=== PATIENT | female | born 1960 | race Caucasian/White ===

== ENCOUNTER 2018-06-29 15:48 | Observation (INO) | payer SELFPAY ==
[~2018-06-29 15:48] MED LIST: ISOVUE-370 76%-LOCM 1 ML ONE
--- NOTE | 2018-06-29 16:01 | CT ---
BRAIN CT WITHOUT IV CONTRAST: 06/29/18 HISTORY: Stroke alert, left sided numbness and weakness approximately 1.5 hours ago. FINDINGS: No focal mass or midline shift. No intra or extra-axial hemorrhage. Sinuses and mastoids appear clear . IMPRESSION: No significant acute intracranial process. No mass or bleed. Findings discussed with Dr. Wilcox at 3:55 p.m. Code CR POS: [facility]
[2018-06-29 16:15] LABS: #Basophils 0.1 thou/uL (0.0-0.2); #Eosinphils 0.2 thou/uL (0.0-0.7); #Lymphocytes 2.3 thou/uL (1.20-3.40); #Monocytes 0.6 thou/uL (0.11-0.59); #Neutrophils 3.7 thou/uL (1.40-6.50); %Basophils 1.2 % (0.0-1.0); %Eosinophils 3.3 % (0.0-10.0); %Lymphocytes 33.1 % (21.0-51.0); %Monocytes 8.1 % (0.0-10.0); %Neutrophils 54.3 % (42.0-75.0); Hemoglobin 14.3 g/dL (12.0-16.0); Mean Corpuscular HGB CONC 33.8 g/dL (32.0-36.0); Mean Corpuscular Hemoglobin 33.2 pg (27.0-31.0); Mean Corpuscular Volume 98.3 fL (78.0-98.0); Mean Platelet Volume 7.9 fL (7.4-10.4); Platelet Count 259 thou/uL (130-400); RBC Distribution Width 11.5 % (11.5-14.5); Red Blood Cell (RBC) Count 4.29 mill/uL (4.20-5.40); White Blood Cell (WBC) Count 6.9 thou/uL (4.8-10.8)
[2018-06-29 16:21] LABS: PTT 26.5 SEC (22.9-36.1); Prothrombin Time 12.4 SEC (12.0-14.7)
[2018-06-29 16:22] LABS: INR-International Normal Ratio 0.9
--- NOTE | 2018-06-29 16:26 | CT ---
FCT angiogram head CT angiogram neck: 06/29/2018 COMPARISON: None HISTORY: Left-sided numbness, weakness of the face TECHNIQUE: Axial CT imaging at 1.25 mm intervals from the vertex through lung apices with IV contrast using a CT angiogram protocol. Coronal and sagittal 3-D reformatted imaging obtained. FINDINGS: The retroantral fat and parapharyngeal fat appears clear bilaterally. The parotid glands an d the submandibular glands are unremarkable laterally. The region of the tonsillar pillars, epiglotti s and preepiglottic fat, hyoid bone, thyroid cartilage, cricoid cartilage, and thyroid gland appear u nremarkable. The visualized lung apices demonstrate mild pulmonary parenchymal cystic change in the anterior aspec t of the left upper lobe on axial image 24. 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 No lymphadenopathy is noted within the neck. The imaged paranasal sinuses and mastoid air cells demonstrate no acute findings. On the basis of NASCET criteria, there is no hemodynamically significant stenosis involving the origi n of the subclavian or common carotid artery on either side. Proximal aspect of bilateral common carotid arteries demonstrates significant tortuosity. There is mild partially calcified plaque at the origin of the left internal carotid artery. On the ba sis of NASCET criteria, no hemodynamically significant stenosis is seen involving the internal caroti d artery on either side. Bilateral vertebral arteries are patent. Left vertebral artery is dominant. No hemodynamically signif icant stenosis or occlusion is seen involving the vertebral artery on either side. The basilar artery is patent. The posterior cerebral artery appears patent bilaterally. The P1 segmen t is hypoplastic on the right with a prominent right posterior communicating artery noted. The M1 segment is patent bilaterally. The A1 segment is patent bilaterally. Distal CARLY and MCA branch es appear grossly unremarkable. No saccular aneurysm, high-grade stenosis, or central arterial occlus ion noted. Review of the osseous structures demonstrates no acute osseous abnormality. IMPRESSION: 1. No hemodynamically significant stenosis involving the arterial structures of the neck on the basis of NASCET criteria. 2. No intracranial arterial occlusion. Results called to Dr. Wilcox at 4:19 PM 06/29/2018 CODE CR
[2018-06-29 16:28] LABS: ALT (SGPT) 36 U/L (8-55); AST (SGOT) 27 U/L (5-34); Albumin 4.4 g/dL (3.5-5.0); Alkaline Phosphatase 129 U/L (40-150); Anion Gap 9 mmol/L (10-20); BUN (Urea Nitrogen) 15 mg/dL (9.8-20.1); Bilirubin, Total 0.3 mg/dL (0.2-1.2); Calc. Creatinine Clearance 0 mL/min (70-130); Calcium 9.6 mg/dL (7.8-10.44); Carbon Dioxide 28 mmol/L (22-29); Chloride 107 mmol/L (98-107); Estimated GFR-MDRD 87; Globulin 3.1 g/dL (2.4-3.5); Glucose 102 mg/dL (70-105); Potassium 3.9 mmol/L (3.5-5.1); Protein, Total 7.5 g/dL (6.0-8.3); Sodium 140 mmol/L (136-145)
--- NOTE | 2018-06-29 16:31 | RAD ---
FPortable upright frontal chest radiograph: 06/29/2018 COMPARISON: None HISTORY: Strokelike symptoms FINDINGS: Lungs are clear. Heart and mediastinal contours are unremarkable. IMPRESSION: No acute findings.
[2018-06-29] MEDS ORDERED: Ondansetron PF 4 MG/2 ML Vial ONE (16:33)
[2018-06-29] MEDS ORDERED: Acetaminophen 500 MG TAB ONE (16:46)
[2018-06-29] MEDS ORDERED: ALPRAZolam 0.5 MG TAB ONE (17:14)
--- NOTE | 2018-06-29 18:48 | PDOC.FPRHP ---
- History of Present Illness Chief Complaint: face numbness History of Present Illness: 58yo F with pmh of CVA in 01/2018 presents with complaint of 1 day hx of L sided facial numbness and paresthesia with radiation to L shoulder. Pt endorses sudden onset of symptom and concurrent onset of MORENO and mild transient SOB which has since resolved. MORENO persists. Pt denies aura or visual disturbance. Denies transforming factors or other neurological deficit. Pt reports that this was her sole symptom of previous stroke. ED Course: ASA - Allergies/Adverse Reactions Allergies Allergy/AdvReac Type Severity Reaction Status Date / Time codeine Allergy Verified 06/29/18 20:25 levofloxacin [From Levaquin] Allergy Verified 06/29/18 20:25 Penicillins Allergy Verified 06/29/18 20:25 - Home Medications Medication Instructions Recorded Confirmed Type ALPRAZolam [Xanax] 0.5 mg PO DAILY PRN 06/29/18 06/29/18 History Amlodipine [Norvasc] 5 mg PO DAILY 06/29/18 06/29/18 History Aspirin 325 mg PO DAILY 06/29/18 06/29/18 History Carvedilol 1 tab PO BID 06/29/18 06/29/18 History Lisinopril [Prinivil] 10 mg PO DAILY 06/29/18 06/29/18 History Zolpidem Tartrate [Ambien] 5 mg PO HS 06/29/18 06/29/18 History - History PMHx: CVA, HTN, Anxiety PSHx: cholecystecotmy, hysterectomy, cath FHx: pt is adopted Social: denies tobacco/etoh, endorses occasional marijuana use - Review of Systems General: denies: fever/chills, fatigue Eyes: denies: eye pain, vision changes ENT: denies: nasal congestion, rhinorrhea Respiratory: denies: cough, congestion Cardiovascular: denies: chest pain, palpitation Gastrointestinal: denies: nausea, vomiting Genitourinary: denies: incontinence, dysuria Skin: denies: rashes, lesions Musculoskeletal: denies: pain, tenderness Neurological: denies: syncope, seizure Psychological: denies: anxiety, depression - Vital signs BP: [141/74] HR: [69] RR: [20] Tmax: [98] Pox: [100]% on [ra] Wt: [75kg] - Physical Exam Constitutional: NAD, awake, alert and oriented HEENT: normocephalic and atraumatic, EOMI, grossly normal vision, grossly normal hearing Neck: supple, trachea midline Chest: no-tender to palpation Heart: RRR, normal S1/S2 Lungs: CTAB, no respiratory distress Abdomen: soft, non-tender Musculoskeletal: normal structure, normal tone -Neurological: Gross full body and head L sided decreased sensation with paresthesia, otherwise normal manager photo, normal reflexes, normal strength and normal sensation Skin: no rash/lesions, good turgor Heme/Lymphatic: no unusual bruising or bleeding, no purpura Psychiatric: normal mood and affect, good judgment and insight FMR H&P: Results - Labs Result Diagrams: 06/29/18 15:59 06/29/18 15:59 Lab results: WBC 6.9 thou/uL (4.8-10.8) 06/29/18 15:59 Hgb 14.3 g/dL (12.0-16.0) 06/29/18 15:59 Hct 42.2 % (36.0-47.0) 06/29/18 15:59 MCV 98.3 fL (78.0-98.0) H 06/29/18 15:59 Plt Count 259 thou/uL (130-400) 06/29/18 15:59 Neutrophils % 54.3 % (42.0-75.0) 06/29/18 15:59 Sodium 140 mmol/L (136-145) 06/29/18 15:59 Potassium 3.9 mmol/L (3.5-5.1) 06/29/18 15:59 Chloride 107 mmol/L (98-107) 06/29/18 15:59 Carbon Dioxide 28 mmol/L (22-29) 06/29/18 15:59 BUN 15 mg/dL (9.8-20.1) 06/29/18 15:59 Creatinine 0.70 mg/dL (0.6-1.1) 06/29/18 15:59 Glucose 102 mg/dL (70-105) 06/29/18 15:59 Calcium 9.6 mg/dL (7.8-10.44) 06/29/18 15:59 Total Bilirubin 0.3 mg/dL (0.2-1.2) 06/29/18 15:59 AST 27 U/L (5-34) 06/29/18 15:59 ALT 36 U/L (8-55) 06/29/18 15:59 Alkaline Phosphatase 129 U/L (40-150) 06/29/18 15:59 Creatine Kinase 33 U/L (29-168) 06/29/18 15:59 Serum Total Protein 7.5 g/dL (6.0-8.3) 06/29/18 15:59 Albumin 4.4 g/dL (3.5-5.0) 06/29/18 15:59 FMR H&P: A/P - Problem List (1) Migraine Current Visit: Yes Status: Acute Code(s): G43.909 - MIGRAINE, UNSP, NOT INTRACTABLE, WITHOUT STATUS MIGRAINOSUS (2) HTN (hypertension) Current Visit: Yes Status: Acute Code(s): I10 - ESSENTIAL (PRIMARY) HYPERTENSION (3) Anxiety Current Visit: Yes Status: Acute Code(s): F41.9 - ANXIETY DISORDER, UNSPECIFIED - Plan TIA vs. Migraine vs. CVA A- CTA head and neck and CT brain wnl, pt symptoms are atypical for stroke but are the same as the sympotms she had with previous stroke. Likely complex migraine vs. TIA but stroke r/o is reasonable P- MRI in AM - FLP - ASA - request records from previous stroke hospitalization HTN - hold home meds for now (permissive htn) Anxiety -home meds CODE: DNI FMR H&P: Upper Level - Pertinent history Elysia Pulido is a 58 year old female with a past history of HTN and TIA (01/21) who presents to the ED with several hour history of constant left facial numbness. - Pertinent findings Vitals: BP 155/104 P: 89 RR: 18 O2: 98% on RA Exam: General: Alert and oriented x 3 Heart: RRR, no MRG Lungs: CTAB Neuro: CN II-XII intact grossly. No focal motor deficits. Imaging: no acute intracranial process; no hemorrhage or mass CTA head/neck: no hemodynamically significantly - Plan Date/Time: 06/29/18 1908 Dayana Sutton, have evaluated this patient and agree with findings/plan as outlined by quality intern resident. Pertinent changes/additions are listed here. CVA/TIA rule out - will admit to stroke unit for observation. - stroke team consulted. NPO pending bedside swallow. - pt received full dose ASA in ED. Continue ASA 81 mg qd. - risk stratification with FLP, A1C, ECHO. MRI in AM. - will request records regarding pt's recent hospitalization. Regarding chronic medical problems. pt's home medications will be restarted. Addendum - Attending - Attending Attestation Date/Time: 06/29/18 9783 I personally evaluated the patient and discussed the management with Dr. Godinez /Kedar. I agree with the History, Examination, Assessment and Plan documented above with any addition or exceptions noted below. Patient with history of CVA with no residual deficits here with 1 day history of L face numbness/paresthesias and possible shoulder paresthesias and headache. Denies other motor or sensory loss, vision changes, speech difficulties. Labwork overall nonrevealing, and CT/CTA negative for acute pathology. She is admitted for CVA versus TIA versus complicated Migraine. Will work to get her headache under control, obtain MRI in AM both for CVA r/o purposes but also due to new onset and character of headache in her age group. Monitor symptoms. Further mgmt per clinical course.
[2018-06-29 19:32] LABS: Troponin I Less than 0.010 ng/mL (< 0.028)
[2018-06-29] MEDS ORDERED: Calcium Carbonate 500 MG ChewTAB PO PRN (20:18)
[2018-06-29] MEDS ORDERED: Acetaminophen 325 MG TAB PO PRN (20:18)
[2018-06-29] MEDS ORDERED: Ondansetron ODT 4 MG TAB PO PRN (20:18)
[2018-06-29] MEDS ORDERED: Ibuprofen 600 MG TAB PO PRN (20:18)
[2018-06-29] MEDS ORDERED: Metoclopramide HCl 10 MG/2 ML VIAL IVP SCH (20:18)
[2018-06-29] MEDS ORDERED: Ibuprofen 600 MG TAB PO SCH (20:18)
[2018-06-29] MEDS ORDERED: diphenhydrAMINE 25 MG CAP PO SCH (20:18)
[2018-06-29 20:34] VITALS: BMI 27.5
[2018-06-29 20:34] LABS: Hemoglobin A1c 4.5 % (4.0-6.0)
[2018-06-29] MEDS ORDERED: Sodium Chloride 0.9% 1,000 ML IV SCH (22:15)
[2018-06-29] MEDS ORDERED: Prochlorperazine 10 MG/2 ML VIAL IVP SCH (22:30)
[2018-06-29 22:34] LABS: Troponin I Less than 0.010 ng/mL (< 0.028)
[2018-06-29] MEDS: Zolpidem Tartrate 5 MG TAB PO PRN (23:24)
--- NOTE | 2018-06-30 05:55 | PDOC.FM ---
- Subjective Subjective: Pt states that her left face is still numb like she has been to the dentist. She does state that her left arm and shoulder has returned to normal. She continues to complain of a headache on the left side of her head above the mastoid bone. She denies aura, photosensitivity, or vomiting. She does report some nausea this morning. - Objective Vital Signs & Weight: Vital Signs (12 hours) Temp Pulse Resp BP Pulse Ox 06/30/18 04:00 97.4 F L 62 16 132/79 99 06/30/18 00:00 97.8 F 74 16 127/86 96 06/29/18 19:13 98 F 69 20 141/74 H 100 Weight Weight 77.292 kg I&O: 06/28/18 06/29/18 06/30/18 06:59 06:59 06:59 Intake Total 1002 Balance 1002 Result Diagrams: 06/29/18 15:59 06/29/18 15:59 Phys Exam - Physical Examination Constitutional: NAD HEENT: moist MMs Neck: supple, full ROM Respiratory: no wheezing, no rales, clear to auscultation bilateral Cardiovascular: RRR, no significant murmur Gastrointestinal: soft, non-tender, no distention, positive bowel sounds Musculoskeletal: pulses present CN II-XII grossly intact with the acception of all 3 branches of V, sensory Psychiatric: A&O x 3 Skin: cap refill <2 seconds Dx/Plan (1) Anxiety Code(s): F41.9 - ANXIETY DISORDER, UNSPECIFIED Status: Acute (2) HTN (hypertension) Code(s): I10 - ESSENTIAL (PRIMARY) HYPERTENSION Status: Acute (3) Migraine Code(s): G43.909 - MIGRAINE, UNSP, NOT INTRACTABLE, WITHOUT STATUS MIGRAINOSUS Status: Acute - Plan Plan: This is a 58 yo female with a pmh of anxiety, htn TIA vs migraine vs CVA -Normal CTA of head and neck and CT Brain -Pending FLP, Brain MRI, records from previous stroke hospitalization -NPO pending swallow study Headache -Pt has had NS bolus and compazine, starting magnesium and solu-medrol HTN -Allow for permissive HTN, although pt has been normotensive since admission Anxiety -Continue home meds Addendum - Attending - Attending Attestation Date/Time: 06/30/182012 I personally evaluated the patient and discussed the management with Dr. Gifford I agree with the History, Examination, Assessment and Plan documented above with any addition or exceptions noted below. Patient with neuralgia consider occipital /trigeminal neuralgia and consider tegretol /lidocaine injection if she remains refractory to treatment.
[2018-06-30 06:14] LABS: Cardiac Risk 3.8 (Less than 4.5)
[2018-06-30] MEDS: Aspirin 325 MG TAB PO SCH (09:08)
[2018-06-30] MEDS: Enoxaparin Sodium 40 MG/0.4 ML SYRINGE SC SCH (09:09)
[2018-06-30] MEDS ORDERED: Magnesium 2 GM/50 ML 2 GM in Premix Bag 1 BAG IVPB SCH (09:15)
[2018-06-30] MEDS ORDERED: methylPREDNISolone Sod Succ/PF 125 MG/2 ML VIAL IVP SCH (09:15)
[2018-06-30] MEDS ORDERED: Bacteriostatic Water 30 ML VIAL FS PRN ×2 (09:43→10:00)
[2018-06-30] MEDS: ALPRAZolam 0.5 MG TAB PO PRN (09:59)
--- NOTE | 2018-06-30 11:23 | MRI ---
[facility] brain noncontrast: 06/30/2018 HISTORY: 58-year-old female with left facial numbness and weakness. CVA versus migraine. COMPARISON: No prior brain MRIs. FINDINGS: No restricted diffusion to indicate any acute infarction. No evidence of moderate sized or large carisa ical infarction of any age. A few tiny scattered T2 hyperintensities in frontal cyr radiata and ce ntrum semiovale, nonspecific. These could represent minimal chronic ischemic white matter changes or migraine lesions. Ventricles are normal in size and configuration. No mass effect, midline shift, or extra-axial fluid collection. No evidence of major recent or remote intra-axial hemorrhage. Most of t he images are degraded by patient motion. IMPRESSION: Negative
[2018-06-30] MEDS ORDERED: carBAMazepine 200 MG TAB PO SCH (12:15)
[2018-06-30] MEDS ORDERED: Metoclopramide HCl 10 MG/2 ML VIAL IVP SCH (14:30)
[2018-06-30] MEDS ORDERED: Sodium Chloride 0.9% 1,000 ML IV SCH (14:30)
[2018-06-30] MEDS ORDERED: Prochlorperazine Edisylate 10 MG in Sodium Chloride 0.9% 50 ML IVPB SCH (14:30)
[2018-06-30] MEDS ORDERED: Morphine 4 MG/ML VIAL SLOW IVP SCH (18:30)
[2018-06-30] MEDS ORDERED: Rosuvastatin 10 MG TAB PO SCH (21:00)
[2018-06-30] MEDS: Zolpidem Tartrate 5 MG TAB PO PRN (22:23)
[2018-07-01] MEDS: ALPRAZolam 0.5 MG TAB PO PRN (04:21)
--- NOTE | 2018-07-01 05:26 | PDOC.FM ---
- Subjective Subjective: Pt states that her headache is mildly improved. She states the morphine helped overnight. She reports that she has been having lots of stress and believes that also may be contributing to her headache. - Objective MAR Reviewed: Yes Vital Signs & Weight: Vital Signs (12 hours) Temp Pulse Resp BP Pulse Ox 07/01/18 04:16 97.8 F 84 20 137/75 96 06/30/18 20:17 97.7 F 89 20 134/79 93 L Weight Weight 77.292 kg I&O: 06/29/18 06/30/18 07/01/18 06:59 06:59 06:59 Intake Total 2051 2406 Balance 2051 2406 Result Diagrams: 06/29/18 15:59 06/29/18 15:59 Phys Exam - Physical Examination Constitutional: NAD HEENT: moist MMs Tenderness to the occipital region on left Neck: full ROM Respiratory: no wheezing, clear to auscultation bilateral Cardiovascular: RRR, no significant murmur, no rub Gastrointestinal: soft, no distention, positive bowel sounds Musculoskeletal: no edema, pulses present Neurological: moves all 4 limbs Continues to have left sided numbness Psychiatric: A&O x 3 Deviation from normal: Mildly anxious Skin: cap refill <2 seconds Dx/Plan (1) Anxiety Code(s): F41.9 - ANXIETY DISORDER, UNSPECIFIED Status: Acute (2) HTN (hypertension) Code(s): I10 - ESSENTIAL (PRIMARY) HYPERTENSION Status: Acute (3) Migraine Code(s): G43.909 - MIGRAINE, UNSP, NOT INTRACTABLE, WITHOUT STATUS MIGRAINOSUS Status: Acute - Plan Plan: This is a 58 yo female with a pmh of anxiety, htn TIA vs migraine vs CVA -Normal CTA of head and neck and CT Brain -Brain MRI negative -Pt started on statin Headache, likely occipital neuralgia -Pt would likely benefit from a occipital nerve block outpt -We have started tegretol in hopes to relief some of her symptoms HTN -Allow for permissive HTN, although pt has been normotensive since admission Anxiety -Continue home meds Addendum - Attending - Attending Attestation Date/Time: 07/01/18 [id number] I personally evaluated the patient and discussed the management with I agree with the History, Examination, Assessment and Plan documented above with any addition or exceptions noted below. Patient refused tegretol yesterday Headache protocol follow with suboptimal response patient states relief only from Morphine and mentions by name that in past dilaudid has helped. Patient with several recent life circumstance stressors i.e. loss of spouse and loss of home. Recommend trial of injection sc triptan otherwise would benefit from further evaluation outpatient Neurologist and could re-offer trial tegretol to patient. Do not feel in patient best interest to offer opiods.
[2018-07-01] MEDS: Aspirin 325 MG TAB PO SCH (10:28)
[2018-07-01] MEDS: Enoxaparin Sodium 40 MG/0.4 ML SYRINGE SC SCH (10:28)
[2018-07-01] MEDS ORDERED: SUMAtriptan Succinate 6 MG/0.5 ML VIAL SC SCH (10:30)
[2018-07-01 11:33] VITALS: TEMP 97.6
[2018-07-01 12:34] VITALS: BP 142/90
--- NOTE | 2018-07-02 06:19 | DIS ---
DATE OF ADMISSION: 06/29/2018 DATE OF DISCHARGE: 07/01/2018 RESIDENT: James Gifford DO. ADMITTING ATTENDING: Ezequiel Elizondo MD. CONSULTS: None. PROCEDURES: 1. Brain MRI without contrast shows negative for any intracranial lesions. 2. Chest x-ray, portable shows no acute findings. 3. CT head angiogram with and without shows no hemodynamically significant stenosis involving the arterial structures in the neck. No intracranial arterial occlusions. 4. Brain CT without contrast shows no significant acute intracranial process. No mass or bleed. PRIMARY DIAGNOSIS: Likely occipital neuralgia versus trigeminal neuralgia. SECONDARY DIAGNOSES: Cerebrovascular accident, hypertension, anxiety, drug-seeking behavior. DISCHARGE MEDICATIONS: 1. Amlodipine 5 mg p.o. daily. 2. Carvedilol 6.25 mg p.o. b.i.d. 3. Xanax 0.5 mg p.o. daily p.r.n. anxiety. 4. Aspirin 325 mg p.o. daily. 5. Lisinopril 10 mg p.o. daily. 6. Rosuvastatin (Crestor) 10 mg p.o. at bedtime. 7. Ambien 5 mg p.o. at bedtime. DISCONTINUED MEDICATIONS: None. BRIEF HISTORY OF PRESENT ILLNESS/HOSPITAL COURSE: This is a 58-year-old female with past medical history of CVA in January 2018, who presents with a complaint of 1-day history of left-sided facial numbness and paresthesia that radiates to left shoulder. The patient was admitted to the hospital, worked up for stroke, which workup including MRI was negative. The patient continued to have numbness on the side of her face. Tenderness to palpation above the mastoid bone near the occipital region. The patient's NIH score remained stable at 1. In the afternoon, the day before discharge, the patient received one time dose of morphine, which she reports relieved her pain. The patient continued to make comments about Dilaudid helping the pain and the morphine being the only medication that works. Before this point, we tried multiple options including Reglan, Benadryl, IV fluid bolus, Solu-Medrol, magnesium, attempted carbamazepine to treat neuralgia. The patient refused carbamazepine and requested only morphine as that was the drug that helped. At the time of discharge, the patient was stable, continued to have some numbness in her face. DISCHARGE INSTRUCTIONS: 1. Location: Home. 2. Diet: Heart healthy. 3. Activity: As tolerated. 4. Follow up with PCP. The patient would also benefit from following up with Neurology if this continues to be an issue. Job ID: [id number]
== END 2018-07-01 15:55 | disposition home or self-care (01) ==
LOC: ERS 15:48 → 2SE 19:21
PROVIDERS: ADMIT Family Medicine; ATTEND Family Medicine
DX: R20.0 Anesthesia of skin (principal); I10 Essential (primary) hypertension; F41.9 Anxiety disorder, unspecified; G43.909 Migraine, unspecified, not intractable, without status migrainosus; Z76.5 Malingerer [conscious simulation]; Z86.73 Personal history of transient ischemic attack (TIA), and cerebral infarction without residual deficits; Z90.49 Acquired absence of other specified parts of digestive tract; Z90.710 Acquired absence of both cervix and uterus; Z88.5 Allergy status to narcotic agent; Z88.1 Allergy status to other antibiotic agents; Z88.0 Allergy status to penicillin; Z79.82 Long term (current) use of aspirin; Z79.899 Other long term (current) drug therapy
CPT/HCPCS: 36415; 36416; 70450; 70496; 70498; 70551; 71045; 80053; 80061; 82550; 83036; 84484; 85025; 93005; 93306; 96361; 96365; 96367; 96372; 96375; G0378; J0780; J1650; J2270; J2405; J2765; J2930; J3030; J3475; J7050; Q0162; Q0163; Q9966

== ENCOUNTER 2018-08-31 19:13 | Observation (INO) | payer SELFPAY ==
[2018-08-31 20:19] LABS: #Basophils 0.1 thou/uL (0.0-0.2); #Eosinphils 0.3 thou/uL (0.0-0.7); #Lymphocytes 2.7 thou/uL (1.20-3.40); #Monocytes 0.5 thou/uL (0.11-0.59); #Neutrophils 4.8 thou/uL (1.40-6.50); %Basophils 0.9 % (0.0-1.0); %Eosinophils 3.2 % (0.0-10.0); %Lymphocytes 32.7 % (21.0-51.0); %Monocytes 5.5 % (0.0-10.0); %Neutrophils 57.8 % (42.0-75.0); Hemoglobin 13.7 g/dL (12.0-16.0); Mean Corpuscular HGB CONC 33.8 g/dL (32.0-36.0); Mean Corpuscular Hemoglobin 33.4 pg (27.0-31.0); Mean Corpuscular Volume 98.8 fL (78.0-98.0); Mean Platelet Volume 7.9 fL (7.4-10.4); Platelet Count 254 thou/uL (130-400); RBC Distribution Width 11.9 % (11.5-14.5); Red Blood Cell (RBC) Count 4.09 mill/uL (4.20-5.40); White Blood Cell (WBC) Count 8.3 thou/uL (4.8-10.8)
[2018-08-31 20:41] LABS: ALT (SGPT) 40 U/L (8-55); AST (SGOT) 41 U/L (5-34); Albumin 4.5 g/dL (3.5-5.0); Alkaline Phosphatase 100 U/L (40-150); Anion Gap 14 mmol/L (10-20); BUN (Urea Nitrogen) 19 mg/dL (9.8-20.1); Bilirubin, Total 0.5 mg/dL (0.2-1.2); CK (CPK) 39 U/L (29-168); Calc. Creatinine Clearance 0 mL/min (70-130); Carbon Dioxide 23 mmol/L (22-29); Chloride 106 mmol/L (98-107); Estimated GFR-MDRD 82; Globulin 3.6 g/dL (2.4-3.5); Glucose 87 mg/dL (70-105); Lipase 35 U/L (8-78); Potassium 4.2 mmol/L (3.5-5.1); Protein, Total 8.1 g/dL (6.0-8.3); Sodium 139 mmol/L (136-145)
[2018-08-31] MEDS ORDERED: Fentanyl 100 MCG/2 ML VIAL ONE (20:44)
[2018-08-31] MEDS ORDERED: Lorazepam 2 MG/ML VIAL ONE (20:44)
--- NOTE | 2018-08-31 20:54 | RAD ---
PORTABLE CHEST: History: Chest pain FINDINGS: Lungs appear clear. Heart and mediastinum unremarkable. IMPRESSION: No acute process. POS: [facility]
--- NOTE | 2018-08-31 20:59 | CT ---
CT HEAD WITHOUT CONTRAST: Technique: Multiple axial tomograms were obtained through the head without IV enhancement. Indications: Syncope. FINDINGS: Ventricles have normal size and position. No mass or hemorrhage. No infarct. Sinuses are clear. IMPRESSION: No acute process. POS: [id number]
[2018-08-31] MEDS ORDERED: Ondansetron PF 4 MG/2 ML Vial ONE (21:14)
--- NOTE | 2018-08-31 21:19 | PDOC.FPRHP ---
- History of Present Illness Chief Complaint: Chest pain and syncope History of Present Illness: This is 58 yo female with a pmh of HTN, RBBB, TIA 01/21 who presents to the ED with a cc of chest pain and syncopal episode. She reports the chest pain started at 1400 the day of admission. She states the pain is a pressure without radiation below her sternum. She feels she can not get a good breath. Her syncopal episode occurred at 1500 for less than a minute. Witnessed LOC, no seizure activity. ED Course: zofran, fentanyl, ativan, NS 1L - Allergies/Adverse Reactions Allergies Allergy/AdvReac Type Severity Reaction Status Date / Time codeine Allergy Verified 06/29/18 20:25 ketorolac Allergy Verified 08/31/18 22:40 levofloxacin [From Levaquin] Allergy Verified 06/29/18 20:25 Penicillins Allergy Verified 06/29/18 20:25 - Home Medications Medication Instructions Recorded Confirmed Type ALPRAZolam [Xanax] 0.5 mg PO DAILY PRN 06/29/18 08/31/18 History Aspirin 325 mg PO DAILY 06/29/18 08/31/18 History Zolpidem Tartrate [Ambien] 10 mg PO HS 06/29/18 08/31/18 History Amlodipine [Norvasc] 5 mg PO DAILY #30 tab 07/01/18 08/31/18 Rx Carvedilol 1 tab PO BID #60 tablet 07/01/18 08/31/18 Rx Lisinopril [Prinivil] 10 mg PO DAILY #30 tablet 07/01/18 08/31/18 Rx Rosuvastatin [Crestor] 10 mg PO HS #30 tab 07/01/18 08/31/18 Rx - History PMHx: HTN, RBBB, TIA PSHx: Heart cath 03/23, cholecystecotmy, hysterectomy, pseudoaneurysm x2 FHx: Non contributory Social: Hx of smoking, denies alcohol or drugs - Review of Systems General: reports: fatigue. denies: fever/chills, weight/appetite/sleep changes Eyes: denies: eye pain, vision changes ENT: denies: nasal congestion, rhinorrhea Respiratory: reports: shortness of breath. denies: cough Cardiovascular: reports: chest pain. denies: palpitation, edema Gastrointestinal: denies: nausea, vomiting, diarrhea, GI bleeding Genitourinary: denies: incontinence Skin: denies: rashes, lesions Musculoskeletal: denies: pain, tenderness Neurological: reports: syncope. denies: numbness Psychological: reports: anxiety. denies: depression - Vital signs BP: 128/82 HR: 72 RR: 18 Tmax: 98.3 Pox: 99% on ra Wt: 74 kg - Physical Exam Constitutional: NAD, awake, alert and oriented, well developed HEENT: normocephalic and atraumatic, PERRLA, EOMI Neck: supple, FROM Chest: other (severe tenderness to palpation, reportably the pain she was feeling before) Heart: RRR, normal S1/S2, no murmurs/rubs/gallops Lungs: CTAB, no respiratory distress, no wheezing Abdomen: soft, non-tender Musculoskeletal: normal structure, normal tone Skin: good turgor, capillary refill <2 seconds Heme/Lymphatic: no unusual bruising or bleeding Psychiatric: normal mood and affect FMR H&P: Results - Labs Result Diagrams: 08/31/18 20:01 09/01/18 01:54 Lab results: WBC 8.3 thou/uL (4.8-10.8) 08/31/18 20:01 Hgb 13.7 g/dL (12.0-16.0) 08/31/18 20:01 Hct 40.4 % (36.0-47.0) 08/31/18 20:01 MCV 98.8 fL (78.0-98.0) H 08/31/18 20:01 Plt Count 254 thou/uL (130-400) 08/31/18 20:01 Neutrophils % 57.8 % (42.0-75.0) 08/31/18 20:01 Sodium 139 mmol/L (136-145) 08/31/18 20:01 Potassium 4.2 mmol/L (3.5-5.1) 08/31/18 20:01 Chloride 106 mmol/L (98-107) 08/31/18 20:01 Carbon Dioxide 23 mmol/L (22-29) 08/31/18 20:01 BUN 19 mg/dL (9.8-20.1) 08/31/18 20:01 Creatinine 0.73 mg/dL (0.6-1.1) 08/31/18 20:01 Glucose 87 mg/dL (70-105) 08/31/18 20:01 Calcium 10.0 mg/dL (7.8-10.44) 08/31/18 20:01 Total Bilirubin 0.5 mg/dL (0.2-1.2) 08/31/18 20:01 AST 41 U/L (5-34) H 08/31/18 20:01 ALT 40 U/L (8-55) 08/31/18 20:01 Alkaline Phosphatase 100 U/L (40-150) 08/31/18 20:01 Creatine Kinase 39 U/L (29-168) 08/31/18 20:01 B-Natriuretic Peptide Less than 10.0 pg/mL (0-100) 08/31/18 19:57 Serum Total Protein 8.1 g/dL (6.0-8.3) 08/31/18 20:01 Albumin 4.5 g/dL (3.5-5.0) 08/31/18 20:01 Lipase 35 U/L (8-78) 08/31/18 20:01 - EKG Interpretation EKG: RBBB, no st elevation or depression - Radiology Interpretation CT scan - head Status: report reviewed by me (negative for acute process) Chest x-ray Status: report reviewed by me (no acute processes) FMR H&P: A/P - Problem List (1) Chest pain Current Visit: Yes Status: Acute Code(s): R07.9 - CHEST PAIN, UNSPECIFIED (2) Acute costochondritis Current Visit: Yes Status: Acute Code(s): M94.0 - CHONDROCOSTAL JUNCTION SYNDROME [TIETZE] (3) Anxiety Current Visit: No Status: Acute Code(s): F41.9 - ANXIETY DISORDER, UNSPECIFIED (4) HTN (hypertension) Current Visit: No Status: Acute Code(s): I10 - ESSENTIAL (PRIMARY) HYPERTENSION - Plan This is 58 yo female with a pmh of HTN, RBBB, TIA 01/21 Chest pain, likely costochondritis vs arrhythmia -Admit to tele obs -Reproducible pain -Recent Echo was negative, CTA head and neck was recently negative as well (2018) -Stress test this morning 2/2 history Hypertensive urgency -BP 188/112 at home -Resolved in ER, will continue monitoring -Continue home meds RBBB -Pt may consider outpt holter monitor to follow for arrhythmias HTN -Continue home meds Code: Full Prophylaxis: SCDs Family: None at bedside fluids: SL Diet: NPO Disposition: Home in 1-2 days PCP: [facility] FMR H&P: Upper Level - Plan Date/Time: 08/31/18 8218 Zulma Sutton MD, have evaluated this patient and agree with findings/plan as outlined by help desk internship resident. Pertinent changes/additions are listed here. 58 y/o F w/ PMHx of CVA presents for eval of chest pain and syncopal episode while at work around 1600 earlier tonight. Reports feeling like her heartbeat was pulsing in her head and a swimming sensation and some chest pressure prior to LOC for approx. 1 min. Witnessed, no seizure like activity. Reports chest pressure continued and BP elevated and went to the ER for eval. Reports pain w/ deep inspiration. Vitals per help desk internship note Trop < 0.01 TSH 0.7534 CK 39 D-Dimer - < 0.27 EKG - Complete RBB CXR NAD CT Brain - NAD Exam Grossly normal. Chest pain reproducible w/ palpation. 58 y/o F w/: 1. Atypical Chest Pain - Trop and EKG WNL - ASA given in ER - Cont. to trend trops, start high intensity statin. Stress in the AM 2. Syncopal episode - Unclear etiology at this time DDx includes arrhythmia vs vasovagal. Likely vasovagal given prodromal sxs - Head CT WNL - CTA Head/Neck negative from 06/2018 admission. Unlikely to have developed hemodynamically significant stenosis in the past 6 months - ECHO from 06/2018 admission grossly normal as well. Will likely need holter as an outpatient Addendum - Attending - Attending Attestation Date/Time: 09/01/18 1104 I personally evaluated the patient and discussed the management with Dr. Gifford /Kylah. I agree with the History, Examination, Assessment and Plan documented above with any addition or exceptions noted below. Patient here for chest pain that is MSK in nature and concern for syncope. She had recent evaluation with Echo and CTA that does not need to be repeated. History consistent with orthostatis/vasovagal. She does not need stress testing as she had recent heart cath in [place] which records were reviewed this morning showing no CAD. Ruled out with enzymes. Stable for discharge.
[2018-08-31 22:38] VITALS: BMI 27.8
[2018-08-31] MEDS ORDERED: Ondansetron PF 4 MG/2 ML Vial IVP PRN (23:02)
[2018-08-31] MEDS ORDERED: Ondansetron ODT 4 MG TAB SL PRN (23:02)
[2018-08-31 23:08] LABS: Troponin I Less than 0.010 ng/mL (< 0.028)
[2018-08-31] MEDS ORDERED: Aspirin 325 MG TAB PO SCH (23:15)
[2018-08-31] MEDS: Sodium Chloride 0.9% 1,000 ML IV SCH (23:19)
[2018-09-01] MEDS: Lorazepam 2 MG/ML VIAL SLOW IVP PRN ×2 (00:09→08:18)
[2018-09-01 02:33] LABS: Troponin I 0.012 ng/mL (< 0.028)
[2018-09-01] MEDS ORDERED: Acetaminophen 500 MG TAB PO PRN (04:19)
[2018-09-01] MEDS ORDERED: Nitroglycerin 0.4 MG TAB (25 Tab Bottle) PO PRN (04:19)
[2018-09-01] MEDS ORDERED: Calcium Carbonate 500 MG ChewTAB PO PRN (04:19)
[2018-09-01 05:04] LABS: Anion Gap 13 mmol/L (10-20); BUN (Urea Nitrogen) 17 mg/dL (9.8-20.1); Calc. Creatinine Clearance 111 mL/min (70-130); Calcium 8.9 mg/dL (7.8-10.44); Carbon Dioxide 21 mmol/L (22-29); Chloride 109 mmol/L (98-107); Estimated GFR-MDRD 84; Glucose 124 mg/dL (70-105); Potassium 3.6 mmol/L (3.5-5.1); Sodium 139 mmol/L (136-145)
[2018-09-01 07:42] VITALS: TEMP 98
[2018-09-01] MEDS ORDERED: Aspirin 325 MG TAB PO SCH (08:00)
[2018-09-01] MEDS: Sodium Chloride 0.9% 1,000 ML IV SCH (08:19)
[2018-09-01] MEDS ORDERED: Lisinopril 10 MG TAB PO SCH (09:00)
[2018-09-01] MEDS ORDERED: Amlodipine 5 MG TAB PO SCH (09:00)
[2018-09-01 11:53] VITALS: BP 129/71
[2018-09-01] MEDS ORDERED: Zolpidem Tartrate 5 MG TAB PO SCH (21:00)
[2018-09-01] MEDS ORDERED: Rosuvastatin 10 MG TAB PO SCH (21:00)
--- NOTE | 2018-09-02 10:34 | DIS ---
DATE OF ADMISSION: 08/31/2018 DATE OF DISCHARGE: 09/01/2018 ADMITTING ATTENDING: Ezequiel Elizondo MD DISCHARGE ATTENDING: Ezequiel Elizondo MD CONSULTS: None. PROCEDURES: None. IMAGING: Chest x-ray significant for no acute findings. Brain CT significant for no acute intracranial findings. DISCHARGE MEDICATIONS: 1. Aspirin 325 mg p.o. daily. 2. Ambien 10 mg p.o. at bedtime. 3. Xanax 0.5 mg p.o. daily. 4. Crestor 10 mg p.o. at bedtime. 5. Amlodipine 5 mg p.o. daily. 6. Coreg 1 tablet p.o. b.i.d. 7. Lisinopril 10 mg p.o. daily. DISCHARGE DIAGNOSIS: Atypical chest pain. SECONDARY DIAGNOSES: 1. Hypertensive urgency. 2. Right bundle-branch block. 3. Hypertension. HISTORY OF PRESENT ILLNESS/HOSPITAL COURSE: Ms. Pulido is a 58-year-old female who presents to the emergency room with a chief complaint of chest pain and syncopal episode. She has presented to emergency rooms in the past with similar complaints and received various pain medications from multiple emergency departments within the area as seen on the [employer]. At this time, she had a witnessed loss of consciousness and no seizure activity. In the emergency room, she received Zofran, Ativan , 1 L of normal saline. She was admitted to the floor for chest pain rule out. Troponins were trended and were within normal limits. Records were obtained from outside hospital, revealed a clean left heart catheterization that had been done within the past 6 months. The patient was deemed stable for discharge home with the diagnosis of atypical chest pain, cardiac in nature. DISCHARGE INSTRUCTIONS: Location: Home. Diet: Heart healthy, low-sodium. Activity: As tolerated. Followup: Follow up with PCP in the next 7 to 10 days. Job ID: [id number] [facility]PITALJaneen
== END 2018-09-01 12:19 | disposition home or self-care (01) ==
LOC: ERS 19:13 → 2SW 22:32
PROVIDERS: ADMIT Family Medicine; ATTEND Family Medicine
DX: R07.89 Other chest pain (principal); R55 Syncope and collapse; I10 Essential (primary) hypertension; I45.10 Unspecified right bundle-branch block; I16.0 Hypertensive urgency; Z86.73 Personal history of transient ischemic attack (TIA), and cerebral infarction without residual deficits; Z79.82 Long term (current) use of aspirin; Z79.899 Other long term (current) drug therapy; Z88.0 Allergy status to penicillin; Z88.1 Allergy status to other antibiotic agents; Z88.5 Allergy status to narcotic agent; Z88.6 Allergy status to analgesic agent
CPT/HCPCS: 36415; 70450; 71045; 80048; 80053; 82550; 83690; 83880; 84443; 84484; 85025; 85379; 93005; 96361; 96374; 96375; 96376; G0378; J2060; J2405; J3010

== ENCOUNTER 2018-11-08 11:33 | Emergency (ER) | payer SELFPAY ==
[2018-11-08] MEDS ORDERED: Acetaminophen 500 MG TAB ONE (12:19)
[2018-11-08] MEDS ORDERED: Amlodipine 5 MG TAB PO SCH (12:30)
[2018-11-08] MEDS ORDERED: Acetaminophen 500 MG TAB PO SCH (12:30)
== END 2018-11-08 12:35 | disposition home or self-care (01) ==
LOC: ERS 11:33
DX: I10 Essential (primary) hypertension (principal); F41.9 Anxiety disorder, unspecified; Z76.0 Encounter for issue of repeat prescription; Z86.73 Personal history of transient ischemic attack (TIA), and cerebral infarction without residual deficits; Z79.82 Long term (current) use of aspirin; Z79.899 Other long term (current) drug therapy
CPT/HCPCS: 99281

== ENCOUNTER 2018-11-19 23:34 | Emergency (ER) | payer BC, SELFPAY ==
[2018-11-20] MEDS ORDERED: Ibuprofen 200 MG TAB ONE (00:13)
--- NOTE | 2018-11-20 07:11 | RAD ---
RADIOGRAPH LEFT FOOT THREE VIEWS: HISTORY: A 58-year-old female with traumatic left foot pain. FINDINGS: No fracture identified. Diffuse osteopenia. No dislocation. No high-grade DJD. IMPRESSION: No fracture. POS: CET
--- NOTE | 2018-11-20 07:12 | RAD ---
RADIOGRAPH LEFT ANKLE THREE VIEWS: HISTORY: A 58-year-old female status post traumatic left ankle pain. FINDINGS: No fracture. Ankle mortise is congruent. No high-grade DJD. Osteopenia. Talar dome is maintained. Soft tissue swelling circumferentially. IMPRESSION: 1. Soft tissue edema. 2. No fracture. POS: CET
== END 2018-11-20 00:31 | disposition home or self-care (01) ==
LOC: ERS 23:34
DX: S93.402A Sprain of unspecified ligament of left ankle, initial encounter (principal); I10 Essential (primary) hypertension; Z86.73 Personal history of transient ischemic attack (TIA), and cerebral infarction without residual deficits; F41.9 Anxiety disorder, unspecified; X50.9XXA Other and unspecified overexertion or strenuous movements or postures, initial encounter

== ENCOUNTER 2018-11-20 22:00 | Emergency (ER) | payer BC | END 2018-11-20 22:32 | disposition home or self-care (01) | LOC: ERS 22:00 | DX: M25.572 Pain in left ankle and joints of left foot (principal); M54.32 Sciatica, left side; I10 Essential (primary) hypertension; F41.9 Anxiety disorder, unspecified; Z79.899 Other long term (current) drug therapy; Z86.73 Personal history of transient ischemic attack (TIA), and cerebral infarction without residual deficits | CPT/HCPCS: 99281 ==

== ENCOUNTER 2019-06-19 16:45 | Emergency (ER) | payer BC, SELFPAY ==
[~2019-06-19 16:45] MED LIST changes: -ISOVUE-370 76%-LOCM 1 ML ONE; +Iopamidol 370 76% 100 ML VIAL ONE
[2019-06-19 17:14] LABS: #Eosinphils 0.3 thou/uL (0.0-0.7); #Lymphocytes 2.9 thou/uL (1.20-3.40); #Monocytes 0.8 thou/uL (0.11-0.59); #Neutrophils 5.3 thou/uL (1.40-6.50); %Basophils 0.5 % (0.0-1.0); %Lymphocytes 31.5 % (21.0-51.0); %Monocytes 8.8 % (0.0-10.0); %Neutrophils 56.3 % (42.0-75.0); Hemoglobin 14.8 g/dL (12.0-16.0); Mean Corpuscular HGB CONC 34.3 g/dL (32.0-36.0); Mean Corpuscular Hemoglobin 33.6 pg (27.0-31.0); Mean Corpuscular Volume 97.9 fL (78.0-98.0); Mean Platelet Volume 8.4 fL (7.4-10.4); Platelet Count 275 thou/uL (130-400); RBC Distribution Width 11.7 % (11.5-14.5); Red Blood Cell (RBC) Count 4.41 mill/uL (4.20-5.40); White Blood Cell (WBC) Count 9.3 thou/uL (4.8-10.8)
[2019-06-19 17:36] LABS: ALT (SGPT) 37 U/L (8-55); AST (SGOT) 28 U/L (5-34); Albumin 4.6 g/dL (3.5-5.0); Alkaline Phosphatase 126 U/L (40-110); Anion Gap 14 mmol/L (10-20); BUN (Urea Nitrogen) 13 mg/dL (9.8-20.1); Bilirubin, Total 0.4 mg/dL (0.2-1.2); Calc. Creatinine Clearance 0 mL/min (70-130); Calcium 9.7 mg/dL (7.8-10.44); Carbon Dioxide 22 mmol/L (22-29); Chloride 106 mmol/L (98-107); Estimated GFR-MDRD 66; Globulin 3.4 g/dL (2.4-3.5); Glucose 90 mg/dL (70-105); Lipase 51 U/L (8-78); Potassium 4.1 mmol/L (3.5-5.1); Sodium 138 mmol/L (136-145)
[2019-06-19] MEDS ORDERED: Morphine 4 MG/ML VIAL ONE (18:13)
[2019-06-19] MEDS ORDERED: Ondansetron PF 4 MG/2 ML Vial ONE (18:13)
--- NOTE | 2019-06-19 18:38 | CT ---
CT of abdomen and pelvis: 06/19/2019 COMPARISON: None HISTORY: Nausea, vomiting, abdominal pain TECHNIQUE: Axial CT imaging at 5 mm intervals from lung bases through pubic symphysis with IV contras t. Coronal and sagittal reformatted imaging obtained. FINDINGS: The visualized lung bases are unremarkable. No free intraperitoneal air or fluid is appreci ated. Cholecystectomy clips are present. The liver, spleen, pancreas, adrenal glands, and kidneys demonstrate no acute findings. There is a sm all hypodensity in the midpole of the right kidney measuring 8 mm in AP dimension, too small to definitively characterize. Nonemergent follow-up renal ultrasound is suggested. There is a small nodule in the left adrenal gland difficult to characterize secondary to small size o f approximately 7 mm. Limited assessment of the bowel demonstrates no evidence for focal inflammatory change or obstruction . The appendix appears grossly unremarkable. There is mild scattered atherosclerotic calcification of the abdominal aorta. No lymphadenopathy is noted within the abdomen or pelvis. Review of the osseous structures demonstrat es no worrisome lytic or blastic lesions. No acute osseous abnormality. IMPRESSION: Incidental findings as described above. No acute findings are seen within the abdomen/pel vis.
[2019-06-19 18:59] LABS: Bilirubin Negative (Negative); Blood, Urine Negative (Negative); Clarity Clear (Clear); Glucose, Urine (Dipstick) Negative (Negative); Leukocyte Negative (Negative); Nitrite Negative (Negative); Protein, Urine (Dipstick) Negative (Neg-Trace); Urobilinogen 0.2 mg/dL (Less than 2)
== END 2019-06-19 19:28 | disposition home or self-care (01) ==
LOC: ERS 16:45
DX: R10.31 Right lower quadrant pain (principal); F41.9 Anxiety disorder, unspecified; Z87.891 Personal history of nicotine dependence; I10 Essential (primary) hypertension; Z86.73 Personal history of transient ischemic attack (TIA), and cerebral infarction without residual deficits; Z79.899 Other long term (current) drug therapy
CPT/HCPCS: 36415; 74177; 80053; 81003; 83690; 85025; 93005; 96374; 96375; J2270; J2405; Q9967

== ENCOUNTER 2019-11-08 16:07 | Emergency (ER) | payer SELFPAY ==
[2019-11-08 16:37] LABS: #Lymphocytes 1.7 thou/uL (1.20-3.40); #Neutrophils 15.7 thou/uL (1.40-6.50); %Eosinophils 0.1 % (0.0-10.0); %Lymphocytes 9.2 % (21.0-51.0); %Monocytes 5.6 % (0.0-10.0); %Neutrophils 85.1 % (42.0-75.0); Hemoglobin 13.7 g/dL (12.0-16.0); Mean Corpuscular HGB CONC 32.1 g/dL (32.0-36.0); Mean Corpuscular Hemoglobin 31.7 pg (27.0-31.0); Mean Corpuscular Volume 98.8 fL (78.0-98.0); Mean Platelet Volume 7.9 fL (7.4-10.4); Platelet Count 312 thou/uL (130-400); RBC Distribution Width 11.8 % (11.5-14.5); Red Blood Cell (RBC) Count 4.34 mill/uL (4.20-5.40); White Blood Cell (WBC) Count 18.5 thou/uL (4.8-10.8)
--- NOTE | 2019-11-08 16:39 | RAD ---
Portable chest: HISTORY: Cough COMPARISON: 11/07/2019 FINDINGS: Lung lipscomb are clear. Heart and mediastinum appear unremarkable. Vascularity is normal. C ardiac silhouette is accentuated by this projection. Mild aortic calcification. Visualized osseous structures unremarkable. IMPRESSION: No acute finding
[2019-11-08 16:58] LABS: ALT (SGPT) 30 U/L (8-55); AST (SGOT) 18 U/L (5-34); Albumin 4.4 g/dL (3.5-5.0); Alkaline Phosphatase 114 U/L (40-110); Anion Gap 14 mmol/L (10-20); BUN (Urea Nitrogen) 9 mg/dL (9.8-20.1); Bilirubin, Total 0.7 mg/dL (0.2-1.2); Calc. Creatinine Clearance 0 mL/min (70-130); Calcium 9.7 mg/dL (7.8-10.44); Carbon Dioxide 20 mmol/L (22-29); Chloride 109 mmol/L (98-107); Estimated GFR-MDRD 81; Globulin 3.3 g/dL (2.4-3.5); Glucose 127 mg/dL (70-105); Lipase 21 U/L (8-78); Potassium 3.9 mmol/L (3.5-5.1); Protein, Total 7.7 g/dL (6.0-8.3); Sodium 139 mmol/L (136-145)
== END 2019-11-08 17:37 | disposition left against medical advice (07) ==
LOC: ERS 16:07
DX: Z53.21 Procedure and treatment not carried out due to patient leaving prior to being seen by health care provider (principal)
CPT/HCPCS: 36415; 71045; 80053; 83690; 84484; 85025; 93005; 94760

== ENCOUNTER 2020-02-23 18:18 | Observation (INO) | payer SELFPAY ==
--- NOTE | 2020-02-23 18:45 | RAD ---
RADIOGRAPH CHEST 1 VIEW: DATE: 02/23/2020 HISTORY: 59-year-old female with chest pain FINDINGS: There are no airspace densities, pulmonary edema, pneumothorax, or cardiomegaly. The lateral costophr enic angles are sharp. IMPRESSION: No acute cardiopulmonary findings.
[2020-02-23 19:10] LABS: #Basophils 0.1 thou/uL (0.0-0.2); #Eosinphils 0.3 thou/uL (0.0-0.7); #Lymphocytes 2.9 thou/uL (1.20-3.40); #Monocytes 0.9 thou/uL (0.11-0.59); #Neutrophils 5.4 thou/uL (1.40-6.50); %Basophils 1.1 % (0.0-1.0); %Eosinophils 3.6 % (0.0-10.0); %Monocytes 9.6 % (0.0-10.0); %Neutrophils 55.7 % (42.0-75.0); Hemoglobin 13.5 g/dL (12.0-16.0); Mean Corpuscular HGB CONC 32.9 g/dL (32.0-36.0); Mean Corpuscular Hemoglobin 32.6 pg (27.0-31.0); Mean Corpuscular Volume 99.2 fL (78.0-98.0); Mean Platelet Volume 8.2 fL (7.4-10.4); Platelet Count 275 thou/uL (130-400); RBC Distribution Width 11.6 % (11.5-14.5); Red Blood Cell (RBC) Count 4.14 mill/uL (4.20-5.40); White Blood Cell (WBC) Count 9.6 thou/uL (4.8-10.8)
[2020-02-23] MEDS ORDERED: Nitroglycerin 2% Ointment 1 INCH/1 GM Packet ONE ×2 (19:24→19:25)
[2020-02-23 19:34] LABS: ALT (SGPT) 65 U/L (8-55); AST (SGOT) 54 U/L (5-34); Alkaline Phosphatase 141 U/L (40-110); Anion Gap 17 mmol/L (10-20); BUN (Urea Nitrogen) 11 mg/dL (9.8-20.1); Bilirubin, Total 0.4 mg/dL (0.2-1.2); CK (CPK) 77 U/L (29-168); Calc. Creatinine Clearance 0 mL/min (70-130); Calcium 9.1 mg/dL (7.8-10.44); Carbon Dioxide 19 mmol/L (22-29); Chloride 108 mmol/L (98-107); Estimated GFR-MDRD 72; Globulin 3.6 g/dL (2.4-3.5); Glucose 98 mg/dL (70-105); Lipase 41 U/L (8-78); Potassium 4.3 mmol/L (3.5-5.1); Protein, Total 7.6 g/dL (6.0-8.3); Sodium 140 mmol/L (136-145)
[2020-02-23] MEDS ORDERED: Ondansetron PF 4 MG/2 ML Vial ONE ×2 (19:52→20:30)
[2020-02-23] MEDS ORDERED: Acetaminophen 325 MG TAB ONE (20:08)
--- NOTE | 2020-02-23 20:14 | PDOC.HHP ---
Hospitalist HPI - History of Present Illness chest pain History of Present Illness: PCP: [facility] The patient is a 59-year-old female with a past medical history significant for HTN, HLD, TIA and anxiety that presents to the emergency department via EMS for the above complaint. The patient reports while in [facility], at approximately 1730, developing the acute onset of substernal chest pain, described as pressure, radiating to left neck, arm, and back, exacerbated with exertion and relieved by nothing. She reports associated TERAN, "feeling flushed", headache and ringing in her ears. Denies any changes in speech, vision or focal motor deficits. No recent URI or illness. She reports that she walked over to the pharmacy to check her blood pressure. She reports a blood pressure reading of 189/211. She got in her car, called a friend which instructed her to go to the nearest fire station. There, her blood pressure was still high, so she came by ambulance to the hospital for further evaluation. The patient denies any history of COPD/asthma. No history of DVT/PE. No illicit drug use. She denies heart palpitations and swelling to lower extremities. She she reports intermittent wheezing for the past 1 to 2 months, denies any cough or hemoptysis. Denies any abdominal pain, nausea, vomiting, diarrhea or hematochezia/melena. She has no urinary symptoms. ED Course: VITAL SIGNS Afua Feb 23, 2020 18:20 SHERRILL Mireles Amanda BP: 127/106, MAP: 113, Pulse: 110, Resp: 24, Temp: 98.3 (Oral), Pain: 7, O2 sat: 96 on (Room Air), Time: 02/23/2020 18:20. VITAL SIGNS Afua Feb 23, 2020 18:30 SHERRILL Mireles Amanda BP: 108/79, MAP: 88, Pulse: 109, Resp: 22, Pain: 7, O2 sat: 97 on (Room Air), Time: 02/23/2020 18:30. VITAL SIGNS Afua Feb 23, 2020 19:00 SHERRILL Mireles Amanda BP: 128/93, MAP: 104, Pulse: 105, Resp: 21, O2 sat: 97 on (Room Air), Time: 02/23/2020 19:00. Medications: ondansetron HCl intravenous 4 mg IV Push Given 19:56 02/23/2020 nitroglycerin transdermal 1 inch Topical Given 19:29 02/23/2020 sodium chloride intravenous 1 L IV Fluid Infusion Given 18:59 02/23/2020 Hospitalist ROS - Review of Systems All other systems reviewed; all pertinent +/- noted in HPI/Subj - Medication Medications: Norvasc tablet : Strength - 5 mg : ORAL Patient Dose: 5 mg Oral once a day. Lipitor tablet : Strength - 20 mg : ORAL Patient Dose: 20 mg Oral once a day. Xanax TABLET : Strength - 0.5 mg : ORAL Patient Dose: unk mg Oral once a day PRN. Allergies: Penicillin, Levaquin, codeine, toradol Hospitalist History - Past Medical History Cardiac: reports: HTN, Hyperlipidemia Pulmonary: reports: CVA/TIA/stroke (TIA) Psych: reports: Anxiety - Past Surgical History Past Surgical History: reports: Cholecystectomy, Hysterectomy, Other (Cardiac heart cath 03/23, pseudoaneurysms repair x2) - Family History Other Family History: Adopted - Social History Smoking Status: Former smoker (Quit greater than 10 years ago) Tobacco Type: pipe (Currently vapes) Alcohol: reports: None Drugs: reports: none Living Situation: With Family Activity level: independent ambulation - Exam General Appearance: NAD, awake alert. negative: ill appearing Eye: anicteric sclera ENT: normocephalic atraumatic Neck: supple, symmetric Heart: no murmur, no gallops, no rubs, normal peripheral pulses Heart - other findings: Tachycardic Respiratory: CTAB, no wheezes, no rales, no ronchi, normal chest expansion, no tachypnea Gastrointestinal: soft, non-tender, non-distended, normal bowel sounds, no bruit, no guarding, no rigidity Extremities: no cyanosis, no edema Skin: no rashes Neurological: cranial nerve grossly intact, no focal deficits Musculoskeletal: normal tone, normal strength Psychiatric: normal affect, A&O x 3 Hospitalist Results - Labs Result Diagrams: 02/23/20 18:53 02/23/20 18:53 Lab results: WBC 9.6 thou/uL (4.8-10.8) 02/23/20 18:53 Hgb 13.5 g/dL (12.0-16.0) 02/23/20 18:53 Hct 41.1 % (36.0-47.0) 02/23/20 18:53 MCV 99.2 fL (78.0-98.0) H 02/23/20 18:53 Plt Count 275 thou/uL (130-400) 02/23/20 18:53 Neutrophils % 55.7 % (42.0-75.0) 02/23/20 18:53 Sodium 140 mmol/L (136-145) 02/23/20 18:53 Potassium 4.3 mmol/L (3.5-5.1) 02/23/20 18:53 Chloride 108 mmol/L (98-107) H 02/23/20 18:53 Carbon Dioxide 19 mmol/L (22-29) L 02/23/20 18:53 BUN 11 mg/dL (9.8-20.1) 02/23/20 18:53 Creatinine 0.82 mg/dL (0.6-1.1) 02/23/20 18:53 Glucose 98 mg/dL (70-105) 02/23/20 18:53 Calcium 9.1 mg/dL (7.8-10.44) 02/23/20 18:53 Total Bilirubin 0.4 mg/dL (0.2-1.2) 02/23/20 18:53 AST 54 U/L (5-34) H 02/23/20 18:53 ALT 65 U/L (8-55) H 02/23/20 18:53 Alkaline Phosphatase 141 U/L (40-110) H 02/23/20 18:53 Creatine Kinase 77 U/L (29-168) 02/23/20 18:53 Troponin I Less than 0.010 ng/mL (< 0.028) 02/23/20 18:53 Serum Total Protein 7.6 g/dL (6.0-8.3) 02/23/20 18:53 Albumin 4.0 g/dL (3.5-5.0) 02/23/20 18:53 Lipase 41 U/L (8-78) 02/23/20 18:53 - EKG Interpretation EK lead EKG interpreted by Emergency Department Physician at time of study, 12 lead EKG shows normal sinus rhythm, Rate (beats per minute): 111, Other findings include:, right bundle branch block, Nonspecific EKG changes. - Radiology Interpretation Chest x-ray Status: report reviewed by me Additional Comment: IMPRESSION: No acute cardiopulmonary findings. Hospitalist H&P A/P - Problem (1) Chest pain Code(s): R07.9 - CHEST PAIN, UNSPECIFIED Status: Acute (2) Hypertensive urgency Code(s): I16.0 - HYPERTENSIVE URGENCY Status: Acute (3) Hypertension Code(s): I10 - ESSENTIAL (PRIMARY) HYPERTENSION Status: Chronic (4) Hyperlipidemia Code(s): E78.5 - HYPERLIPIDEMIA, UNSPECIFIED Status: Chronic (5) Anxiety Code(s): F41.9 - ANXIETY DISORDER, UNSPECIFIED Status: Chronic (6) Vapes nicotine containing substance Code(s): Z72.0 - TOBACCO USE Status: Chronic - Plan Plan: 59/F with PMH HTN, HLD, TIA presents for chest pain. Admit to telemetry floor, observation status. Expected length of stay greater than 2 midnights. Reports BP reading 189/211 prior to ER arrival. Presented normotensive, tachycardic, NL RR, SPO2, afebrile. 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 Restart home dose Norvasc. #Hyperlipidemia Restart home dose Lipitor Check FLP #Anxiety Denies SI/HI. Takes Xanax as needed at home. Continue to monitor. #Vapes nicotine containing products unwilling to quit. former tobacco smoker, quit > 10 years SCDs for DVT prophylaxis Pepcid for GI prophylaxis Full code Discussed the case with Dr. Gill Haprer
[2020-02-23] MEDS ORDERED: Morphine 4 MG/ML VIAL ONE (20:30)
[2020-02-23] MEDS ORDERED: Ondansetron ODT 4 MG TAB PO PRN (21:22)
[2020-02-23] MEDS ORDERED: Acetaminophen 325 MG TAB PO PRN (21:22)
[2020-02-23] MEDS ORDERED: Atorvastatin Calcium 40 MG TAB PO SCH (21:30)
[2020-02-23] MEDS ORDERED: Nitroglycerin 2% Ointment 1 INCH/1 GM Packet TOP SCH (22:00)
[2020-02-23 22:17] LABS: Troponin I Less than 0.010 ng/mL (< 0.028)
[2020-02-23] MEDS ORDERED: HYDROcodone/Acetaminophen 5/325 mg Tablet ONE (23:14)
[2020-02-23] MEDS: HYDROcodone/Acetaminophen 5/325 mg Tablet PO PRN (23:24)
[2020-02-24 01:21] LABS: Troponin I Less than 0.010 ng/mL (< 0.028)
[2020-02-24] MEDS ORDERED: Morphine 2 MG/ML VIAL ONE (02:18)
[2020-02-24] MEDS: Morphine 2 MG/ML VIAL SLOW IVP PRN ×3 (02:24→20:59)
[2020-02-24] MEDS ORDERED: Nitroglycerin 2% Ointment 1 INCH/1 GM Packet ONE (04:07)
[2020-02-24] MEDS: Nitroglycerin 2% Ointment 1 INCH/1 GM Packet TOP SCH ×3 (04:12→20:56)
[2020-02-24 05:28] LABS: #Basophils 0.1 thou/uL (0.0-0.2); #Eosinphils 0.4 thou/uL (0.0-0.7); #Lymphocytes 2.5 thou/uL (1.20-3.40); #Monocytes 0.8 thou/uL (0.11-0.59); #Neutrophils 3.8 thou/uL (1.40-6.50); %Basophils 0.9 % (0.0-1.0); %Eosinophils 5.6 % (0.0-10.0); %Lymphocytes 33.1 % (21.0-51.0); %Monocytes 10.4 % (0.0-10.0); Hemoglobin 12.8 g/dL (12.0-16.0); Mean Corpuscular HGB CONC 32.7 g/dL (32.0-36.0); Mean Corpuscular Hemoglobin 32.6 pg (27.0-31.0); Mean Corpuscular Volume 99.8 fL (78.0-98.0); Platelet Count 253 thou/uL (130-400); RBC Distribution Width 11.5 % (11.5-14.5); Red Blood Cell (RBC) Count 3.91 mill/uL (4.20-5.40); White Blood Cell (WBC) Count 7.6 thou/uL (4.8-10.8)
[2020-02-24 05:52] LABS: Anion Gap 12 mmol/L (10-20); BUN (Urea Nitrogen) 14 mg/dL (9.8-20.1); Calc. Creatinine Clearance 0 mL/min (70-130); Calcium 8.6 mg/dL (7.8-10.44); Carbon Dioxide 24 mmol/L (22-29); Cardiac Risk 2.6 (Less than 4.5); Chloride 108 mmol/L (98-107); Cholesterol 123 mg/dl (< 200 Desired); Estimated GFR-MDRD 75; Glucose 99 mg/dL (70-105); HDL Cholesterol 47 mg/dL (>60 Neg Risk); LDL Cholesterol, Calculated 55 mg/dL; Potassium 4.1 mmol/L (3.5-5.1); Sodium 140 mmol/L (136-145); Triglycerides 104 mg/dL (Less than 150)
[2020-02-24] MEDS ORDERED: Aspirin 325 MG TAB ONE (08:54)
[2020-02-24] MEDS ORDERED: HYDROcodone/Acetaminophen 5/325 mg Tablet ONE (08:54)
[2020-02-24] MEDS ORDERED: Famotidine 20 MG TAB ONE (08:54)
[2020-02-24] MEDS ORDERED: Albuterol 200 PUFF (6.7GM INHALER) ONE (09:04)
[2020-02-24] MEDS: Aspirin 325 mg Enteric Coated Tablet PO SCH (09:04)
[2020-02-24] MEDS: Famotidine 20 MG TAB PO SCH ×2 (09:04→20:56)
[2020-02-24] MEDS: Albuterol 200 PUFF (6.7GM INHALER) INH PRN (09:20)
[2020-02-24] MEDS: HYDROcodone/Acetaminophen 5/325 mg Tablet PO PRN ×2 (09:21→16:37)
[2020-02-24 09:35] LABS: SARS-CoV-2 MS2 Positive; SARS-CoV-2 N Gene Negative; SARS-CoV-2 S Gene Negative; SARS-CoV-2 by NAA Not Detected (NotDetected); SARS-CoV-2 orf1ab Negative
[2020-02-24] MEDS: Ondansetron PF 4 MG/2 ML Vial IVP PRN ×2 (13:37→22:59)
[2020-02-24 14:24] VITALS: BMI 35.5
[2020-02-24] MEDS ORDERED: Nitroglycerin 0.4 MG TAB (25 Tab Bottle) SL PRN (15:25)
[2020-02-24 17:05] LABS: Bilirubin Negative (Negative); Blood, Urine Negative (Negative); Clarity Clear (Clear); Glucose, Urine (Dipstick) Normal (Negative); Ketone, Urine Negative (Negative); Leukocyte Negative Leu/uL (Negative); Nitrite Negative (Negative); Protein, Urine (Dipstick) 10 mg/dL (Neg-Trace); RBC/HPF 0-3 HPF (0-3); Specific Gravity, Urine 1.028 (1.002-1.036); Squamous Epithelial 0-3 HPF (0-3); WBC/HPF 0-3 HPF (0-3); pH, Urine 5.5 (5.0-9.0)
[2020-02-24 17:07] LABS: Bacteria/HPF 1+ HPF (None Seen)
--- NOTE | 2020-02-24 19:13 | PDOC.HOSPP ---
- Subjective Encounter Date: 02/24/20 Encounter Time: 16:00 Subjective: Seen for follow-up regarding chest pain. She reports pain across her upper back, radiating to the left side of her neck and down her left arm. - Objective Vital Signs & Weight: Vital Signs (12 hours) Temp Pulse Resp BP Pulse Ox 02/24/20 15:54 97.7 F 90 16 132/78 98 02/24/20 13:06 97.4 F L 85 16 132/78 98 02/24/20 08:26 97.7 F 83 20 119/76 99 Weight Weight 227 lb Result Diagrams: 02/24/20 05:06 02/24/20 05:06 Additional Labs: I reviewed patient's labs and MAR EKG Reviewed by me: Yes (Normal sinus rhythm on telemetry) Hospitalist ROS - Review of Systems Cardiovascular: reports: chest pain. denies: palpitations, orthopnea, paroxysmal noc. dyspnea, edema, light headedness Gastrointestinal: denies: nausea, vomiting, abdominal pain, diarrhea, constipation, melena, hematochezia - Medication Medications: Active Medications Generic Name Dose Route Start Last Admin Trade Name Freq PRN Reason Stop Dose Admin Hydrocodone Bitart/Acetaminophen 1 tab 02/23/20 22:47 02/24/20 16:37 Hydrocodone/Acetaminophen 5/325 Mg Tablet PO 1 tab Q4H PRN Administration Moderate Pain (4-6) Albuterol Sulfate 2 puff 02/24/20 09:14 02/24/20 09:20 Albuterol 200 Puff (6.7gm Inhaler) INH 2 puff Q6H PRN Administration Dyspnea/Wheezing/SOB Aspirin 325 mg 02/24/20 09:00 02/24/20 09:04 Aspirin 325 Mg Enteric Coated Tablet PO 325 mg DAILY SARAH Administration Famotidine 20 mg 02/24/20 09:00 02/24/20 09:04 Famotidine 20 Mg Tab PO 20 mg BID SARAH Administration Morphine Sulfate 2 mg 02/23/20 21:21 02/24/20 13:35 Morphine 2 Mg/Ml Vial SLOW IVP 2 mg Q4H PRN Administration Pain Nitroglycerin 0.5 inch 02/24/20 04:00 02/24/20 13:33 Nitroglycerin 2% Ointment 1 Inch/1 Gm Packet TOP Not Given 0400,1200,2000 [facility] Ondansetron HCl 4 mg 02/23/20 21:22 02/24/20 13:37 Ondansetron Pf 4 Mg/2 Ml Vial IVP 4 mg Q6H PRN Administration Nausea/Vomiting - Exam General Appearance: awake alert General - other findings: Obese Eye: anicteric sclera ENT: moist mucosa Neck: supple Heart: RRR Respiratory: CTAB Gastrointestinal: soft, non-tender Skin: no rashes Psychiatric: normal affect, normal behavior Hosp A/P - Plan -Assessment (1) Chest pain Code(s): R07.9 - CHEST PAIN, UNSPECIFIED Status: Acute (2) Hyperlipidemia Code(s): E78.5 - HYPERLIPIDEMIA, UNSPECIFIED Status: Chronic (3) Hypertension Code(s): I10 - ESSENTIAL (PRIMARY) HYPERTENSION Status: Chronic (4) Anxiety Code(s): F41.9 - ANXIETY DISORDER, UNSPECIFIED Status: Chronic (5) Vapes nicotine containing substance Code(s): Z72.0 - TOBACCO USE Status: Chronic (6) Hypertensive urgency Code(s): I16.0 - HYPERTENSIVE URGENCY Status: Resolved - Plan Hypertensive urgency has resolved. Patient went for stress test but was reportedly wheezing, therefore stress test was not done. Patient reports that she had cardiac catheterization done in [facility] in 2018 which was complicated by development of a pseudoaneurysm. Will obtain records to evaluate. Will consult cardiology service. Continue Lipitor 40 mg daily.
[2020-02-24] MEDS: Atorvastatin Calcium 40 MG TAB PO SCH (20:56)
[2020-02-25 01:03] LABS: Amphetamine Not Detected (NotDetected); Barbiturates Screen Not Detected (NotDetected); Benzodiazepine Screen Detected (NotDetected); Cocaine Metabolite Screen Not Detected (NotDetected); Medtox Control Line Valid? VALID (VALID); Medtox Reader # READER 4; Methadone Not Detected (NotDetected); Methamphetamine Not Detected (NotDetected); Opiate Screen Detected (NotDetected); Oxycodone Screen Not Detected (NotDetected); Phencyclidine (PCP) Not Detected (NotDetected); THC/Cannabinoid Screen Not Detected (NotDetected); Tricyclic Screen Not Detected (NotDetected)
[2020-02-25] MEDS: HYDROcodone/Acetaminophen 5/325 mg Tablet PO PRN ×5 (02:06→23:25)
[2020-02-25] MEDS: Nitroglycerin 2% Ointment 1 INCH/1 GM Packet TOP SCH (03:01)
[2020-02-25] MEDS: Ondansetron PF 4 MG/2 ML Vial IVP PRN (07:58)
[2020-02-25] MEDS: Aspirin 325 mg Enteric Coated Tablet PO SCH (09:53)
[2020-02-25] MEDS: Famotidine 20 MG TAB PO SCH ×2 (09:53→20:36)
[2020-02-25] MEDS: Morphine 2 MG/ML VIAL SLOW IVP PRN ×3 (10:02→20:31)
[2020-02-25] MEDS: methylPREDNISolone Sod Succ 40 MG VIAL IVP SCH ×3 (11:46→23:26)
--- NOTE | 2020-02-25 11:47 | CON ---
DATE OF CONSULTATION: 02/25/2020 REASON FOR CONSULTATION: Chest pressure. HISTORY OF PRESENT ILLNESS: Ms. Pulido is a 59-year-old woman. The patient came to the hospital yesterday complaining of chest pain and pressure. She also had some soreness across her upper back and shoulders. She is pain-free now. The patient does report that she has had acid reflux type symptoms recently with burning in her chest. The patient used to smoke but quit 7 years ago. The patient states that she underwent stress testing and then subsequently cardiac catheterization in [place] in 2018. She developed a pseudoaneurysm and apparently pressure was re-held later after being anesthetized and then again later she said that pseudoaneurysm recurred and had to be treated again. She said this far she knows she did not go to the operating room for that. MEDICATIONS: 1. Aspirin. 2. Amlodipine. 3. Atorvastatin. 4. Furosemide. ALLERGIES: TO CODEINE, PENICILLIN, LEVOFLOXACIN, AND NITROGLYCERIN. REVIEW OF SYSTEMS: CONSTITUTIONAL: No significant weight loss. She is overweight. VISION: No changes. HEARING: No changes. PULMONARY: No cough or wheezing. GASTROINTESTINAL: No nausea, vomiting, or diarrhea. SKIN: No rashes. PHYSICAL EXAMINATION: GENERAL: This is a pleasant woman. She is 5 feet 7 inches tall. She reports 227 pounds. Blood pressure 145/88, pulse and irregular. LUNGS: Clear. CARDIAC: Normal S1, normal S2. ABDOMEN: Obese, nontender. EXTREMITIES: No clubbing or cyanosis. There is only minimal edema. LABORATORY DATA: Echocardiogram was normal. Cardiac enzymes were negative. ASSESSMENT: 1. Chest pressure. 2. Normal cardiac catheterization in [place] 2 years ago according to the patient with subsequent complication of pseudoaneurysm likely related to obesity. 3. Morbid obesity. 4. Esophageal reflux. PLAN: 1. for acid reflux. 2. She was wheezing yesterday, just only mildly today since she is already scheduled for stress test and can proceed. Ideally, we would like to have the cardiac catheterization report, but she said it was totally normal. Job ID: [id number]
--- NOTE | 2020-02-25 12:03 | PDOC.HOSPP ---
- Subjective Encounter Date: 02/25/20 Encounter Time: 12:01 Subjective: Ms. Pulido is a 59-year-old female who was admitted to the hospital with chest pressure. She described what was fairly typical for acute coronary syndrome. Her lab work however and her EKG did not suggest that. She was initially set up to do a stress test but apparently she was wheezing quite a bit and the procedure was held. Cardiology has evaluated her today and plans to proceed with stress testing. She also was evaluated somewhere in [place] about 2 years ago with stress test and a heart cath which reportedly she developed pseudoaneurysm afterwards. - Objective Vital Signs & Weight: Vital Signs (12 hours) Temp Pulse Resp BP BP Pulse Ox 02/25/20 11:39 98.1 F 84 20 119/79 94 L 02/25/20 07:47 98 F 88 20 145/88 H 95 02/25/20 04:00 98.1 F 88 16 115/73 97 Weight Weight 227 lb I&O: 02/24/20 02/25/20 02/26/20 06:59 06:59 06:59 Intake Total 800 Balance 800 Result Diagrams: 02/24/20 05:06 02/24/20 05:06 Radiology Reviewed by me: Yes EKG Reviewed by me: Yes Hospitalist ROS - Review of Systems Constitutional: reports: weakness, malaise Cardiovascular: reports: chest pain Gastrointestinal: reports: nausea Neurological: reports: weakness - Medication Medications: Active Medications Generic Name Dose Route Start Last Admin Trade Name Freq PRN Reason Stop Dose Admin Hydrocodone Bitart/Acetaminophen 1 tab 02/23/20 22:47 02/25/20 11:52 Hydrocodone/Acetaminophen 5/325 Mg Tablet PO 1 tab Q4H PRN Administration Moderate Pain (4-6) Albuterol Sulfate 2 puff 02/24/20 09:14 02/24/20 09:20 Albuterol 200 Puff (6.7gm Inhaler) INH 2 puff Q6H PRN Administration Dyspnea/Wheezing/SOB Aspirin 325 mg 02/24/20 09:00 02/25/20 09:53 Aspirin 325 Mg Enteric Coated Tablet PO 325 mg DAILY SARAH Administration Atorvastatin Calcium 40 mg 02/24/20 21:00 02/24/20 20:56 Atorvastatin Calcium 40 Mg Tab PO 40 mg HS SARAH Administration Famotidine 20 mg 02/24/20 09:00 02/25/20 09:53 Famotidine 20 Mg Tab PO 20 mg BID SARAH Administration Methylprednisolone Sodium Succinate 40 mg 02/25/20 12:00 02/25/20 11:46 Methylprednisolone Sod Succ 40 Mg Vial IVP 02/25/20 23:59 40 mg Q6HR SARAH Administration Morphine Sulfate 2 mg 02/23/20 21:21 02/25/20 10:02 Morphine 2 Mg/Ml Vial SLOW IVP 2 mg Q4H PRN Administration Pain Ondansetron HCl 4 mg 02/23/20 21:22 02/25/20 07:58 Ondansetron Pf 4 Mg/2 Ml Vial IVP 4 mg Q6H PRN Administration Nausea/Vomiting Pantoprazole Sodium 40 mg 02/25/20 11:45 02/25/20 11:48 Pantoprazole 40 Mg Tab PO 02/25/20 13:45 40 mg NOW SARAH Administration Sodium Chloride 10 ml 02/23/20 21:13 02/25/20 10:04 Flush - Normal Saline 10 Ml Syringe IVF 10 ml PRN PRN Administration Saline Flush - Exam ENT: normocephalic atraumatic, moist mucosa Neck: supple, symmetric, no JVD, no thyromegaly, no carotid bruit Heart: RRR, no murmur, no gallops, no rubs, normal peripheral pulses Respiratory: CTAB Gastrointestinal: soft, non-tender, non-distended, normal bowel sounds, no palpable masses Musculoskeletal: normal tone, normal strength Psychiatric: normal affect, normal behavior, A&O x 3, oriented to person Hosp A/P (1) Chest pain Code(s): R07.9 - CHEST PAIN, UNSPECIFIED Status: Acute Qualifiers: Chest pain type: intercostal pain Qualified Code(s): R07.82 - Intercostal pain Plan: Ongoing plan for stress test. I suspect majority of her symptoms might be anxiety related. (2) Hypertensive urgency Code(s): I16.0 - HYPERTENSIVE URGENCY Status: Acute Plan: We will work on blood pressure control. (3) Anxiety Code(s): F41.9 - ANXIETY DISORDER, UNSPECIFIED Status: Chronic Plan: We will continue anxiolytics. (4) Hypertension Code(s): I10 - ESSENTIAL (PRIMARY) HYPERTENSION Status: Chronic Qualifiers: Hypertension type: essential hypertension Qualified Code(s): I10 - Essential (primary) hypertension Plan: We will continue to optimize her blood pressure medicines. (5) Vapes nicotine containing substance Code(s): Z72.0 - TOBACCO USE Status: Chronic Plan: She desperately needs smoking cessation. She thinks she can quit eventually when she goes home. - Plan old records reviewed/req, PT/OT, DVT proph w/lovenox
[2020-02-25] MEDS: Albuterol 200 PUFF (6.7GM INHALER) INH PRN (12:26)
[2020-02-25] MEDS ORDERED: FLU VACC QS2020-21(6MOS UP)/PF 60 MCG/0.5 ML SYRINGE IM ONE (15:30)
--- NOTE | 2020-02-25 17:13 | EKG ---
Test Reason : Blood Pressure : / mmHG Vent. Rate : 111 BPM Atrial Rate : 111 BPM P-R Int : 130 ms QRS Dur : 124 ms QT Int : 364 ms P-R-T Axes : 039 056 050 degrees QTc Int : 495 ms Sinus tachycardia Right bundle branch block Abnormal ECG Confirmed by ROSY BAILEY DO ([id number]), website/blog editor CYRUS AVILA ([id number]) on 02/25/2020 5:13:23 PM Referred By: Confirmed By:ROSY BAILEY DO
[2020-02-25] MEDS: Atorvastatin Calcium 40 MG TAB PO SCH (20:36)
[2020-02-25] MEDS ORDERED: ALPRAZolam 0.5 MG TAB PO PRN (20:51)
[2020-02-25] MEDS ORDERED: Zolpidem Tartrate 5 MG TAB PO SCH (21:00)
[2020-02-26] MEDS: Morphine 2 MG/ML VIAL SLOW IVP PRN (02:25)
[2020-02-26 04:46] LABS: #Lymphocytes 1.4 thou/uL (1.20-3.40); #Monocytes 0.1 thou/uL (0.11-0.59); #Neutrophils 10.8 thou/uL (1.40-6.50); %Basophils 0.2 % (0.0-1.0); %Eosinophils 0.1 % (0.0-10.0); %Monocytes 1.1 % (0.0-10.0); %Neutrophils 87.6 % (42.0-75.0); Hemoglobin 12.8 g/dL (12.0-16.0); Mean Corpuscular HGB CONC 33.5 g/dL (32.0-36.0); Mean Corpuscular Volume 98.6 fL (78.0-98.0); Platelet Count 261 thou/uL (130-400); RBC Distribution Width 11.4 % (11.5-14.5); Red Blood Cell (RBC) Count 3.88 mill/uL (4.20-5.40); White Blood Cell (WBC) Count 12.3 thou/uL (4.8-10.8)
[2020-02-26 05:11] LABS: Anion Gap 13 mmol/L (10-20); BUN (Urea Nitrogen) 13 mg/dL (9.8-20.1); Calc. Creatinine Clearance 133 mL/min (70-130); Calcium 9.3 mg/dL (7.8-10.44); Carbon Dioxide 23 mmol/L (22-29); Chloride 107 mmol/L (98-107); Estimated GFR-MDRD 78; Glucose 154 mg/dL (70-105); Magnesium 2.3 mg/dL (1.6-2.6); Potassium 4.4 mmol/L (3.5-5.1); Sodium 139 mmol/L (136-145)
[2020-02-26] MEDS: Famotidine 20 MG TAB PO SCH (08:24)
[2020-02-26] MEDS: Aspirin 325 mg Enteric Coated Tablet PO SCH (08:24)
[2020-02-26] MEDS ORDERED: PARoxetine 20 MG TAB PO SCH (09:00)
[2020-02-26] MEDS ORDERED: Amlodipine 5 MG TAB PO SCH (09:00)
[2020-02-26 11:31] VITALS: BP 141/88
[2020-02-26 11:57] VITALS: TEMP 97.8
[2020-02-26] MEDS ORDERED: Regadenoson 0.4 MG/5 ML SYRINGE ONE (12:00)
--- NOTE | 2020-02-26 12:53 | NM ---
Radionucleotide stress and rest myocardial perfusion scan with CT attenuation correction and SPECT im aging Left ventricular wall motion evaluation and ejection fraction HISTORY: Chest pain. FINDINGS: Lexiscan protocol. There is homogeneous uptake of radiotracer throughout the left ventricul ar myocardium. No focal perfusion defect or reversibility. QGS analysis of gated SPECT images shows no focal wall motion abnormalities. Ejection fraction calcul ated at 84%. IMPRESSION : No evidence of ischemia. Normal LVEF.
--- NOTE | 2020-02-26 14:22 | PDOC.DS.DS ---
Provider - Provider Date of Admission: 02/23/20 20:16 Date of Discharge: 02/26/20 Admitting Provider: Gill Orosco MD Consultations: Cardiology Primary Care Physician: [facility] Course - Hospital Course Hospital Course: This is a 59-year-old woman who presented to the hospital with what she described as pain in her shoulders going onto her upper neck area and down to her left arm. She presented to the hospital and was admitted due to concern for an acute coronary syndrome. She reportedly had Cardiolite stress test and also heart cath recently at [facility] in [facility]. We attempted to get those records but being the weekend this was not possible at any rate she had a stress test done here and this was a negative study. Her echocardiogram showed a preserved ejection fraction with no valvular dysfunct ion. I really doubt that the patient's pain were cardiac in origin. I suspect this is related to anxiety and possibly musculoskeletal pain. I saw and evaluated her today and she seems to be stable and we went ahead and discharge her home. Please refer to the medication reconciliation for further information. Pertinent Studies: Cardiolite stress test that was negative. Resuscitation Status: 02/23/20 21:22 Resuscitation Status Routine Co-Sign Provider: Resuscitation Status: FULL: Full Resuscitation Discussed with: patient - Labs Lab Results: 02/26/20 04:26 02/26/20 04:26 Abnormal Lab Results - Last 48 hrs 02/23/20 16:41: Urine Urobilinogen 2.0 A, Urine Bacteria 1+ A 02/24/20 16:16: Urine Opiates Screen Detected H, U Benzodiazepines Scrn Detected H 02/26/20 04:26: WBC 12.3 H, RBC 3.88 L, MCV 98.6 H, MCH 33.0 H, RDW 11.4 L, Neutrophils % 87.6 H, Lymphocytes % 11.0 L, Neutrophils # 10.8 H, Monocytes # 0.1 L - Physical Exam Vitals: Vital Signs (12 hours) Temp Pulse Resp BP BP BP Pulse Ox 02/26/20 11:55 97.8 F 103 H 18 141/88 H 93 L 02/26/20 11:30 106 H 141/88 H 02/26/20 07:42 97.7 F 102 H 18 148/78 H 94 L 02/26/20 03:33 97.5 F L 103 H 18 137/91 H 93 L Weight Weight 227 lb Physical Exam: The patient was seen and examined on the day of discharge. Problem - Problem (1) Chest pain Code(s): R07.9 - CHEST PAIN, UNSPECIFIED Status: Acute Qualifiers: Chest pain type: intercostal pain Qualified Code(s): R07.82 - Intercostal pain (2) Hypertensive urgency Code(s): I16.0 - HYPERTENSIVE URGENCY Status: Acute (3) Anxiety Code(s): F41.9 - ANXIETY DISORDER, UNSPECIFIED Status: Chronic (4) Hypertension Code(s): I10 - ESSENTIAL (PRIMARY) HYPERTENSION Status: Chronic Qualifiers: Hypertension type: essential hypertension Qualified Code(s): I10 - Essential (primary) hypertension (5) Vapes nicotine containing substance Code(s): Z72.0 - TOBACCO USE Status: Chronic Plan - Discharge Medications Prescriptions: traMADol HCl [Tramadol HCl] 50 mg PO BID #14 tablet Home Medications: Medication Instructions Recorded Confirmed Type Aspirin 325 mg PO DAILY 06/29/18 02/24/20 History Amlodipine [Norvasc] 5 mg PO DAILY #30 tab 07/01/18 02/24/20 Rx Atorvastatin Calcium [Lipitor] 20 mg PO DAILY 02/24/20 02/24/20 History Furosemide [Lasix] 20 mg PO DAILY 02/24/20 02/24/20 History PARoxetine HCl [Paxil] 40 mg PO DAILY 02/24/20 02/24/20 History Aspirin [Ecotrin Regular Strength] 325 mg PO DAILY tab 02/26/20 Rx Atorvastatin Calcium [Lipitor] 40 mg PO HS tab 02/26/20 Rx traMADol HCl [Tramadol HCl] 50 mg PO BID #14 tablet 02/26/20 Rx Allergies: nitroglycerin Allergy (Mild, Verified 02/25/20 09:58) Rash rash with nitro paste codeine Allergy (Verified 06/24/19 14:33) ketorolac Allergy (Verified 06/24/19 14:33) levofloxacin [From Levaquin] Allergy (Verified 06/24/19 14:33) Penicillins Allergy (Verified 06/24/19 14:33) - Discharge Instructions Nourishment:: Heart Healthy Diet Therapies:: Not Applicable Equipment/Supplies:: Not Applicable - Follow up Plan Referrals: [facility] [Primary Care Provider] - Disposition: HOME Quality - Care Measures CORE MEASURES:: N/A
== END 2020-02-26 14:16 | disposition home or self-care (01) ==
LOC: ERS 18:18 → ERHOLD 20:16 → 2SE 02-24 12:55
PROVIDERS: ADMIT Internal Medicine; ATTEND Hospitalist
DX: I16.0 Hypertensive urgency (principal); R07.89 Other chest pain; I10 Essential (primary) hypertension; E78.5 Hyperlipidemia, unspecified; F41.9 Anxiety disorder, unspecified; F17.290 Nicotine dependence, other tobacco product, uncomplicated; K21.9 Gastro-esophageal reflux disease without esophagitis; E66.01 Morbid (severe) obesity due to excess calories; Z68.35 Body mass index [BMI] 35.0-35.9, adult; Z86.73 Personal history of transient ischemic attack (TIA), and cerebral infarction without residual deficits; Z79.82 Long term (current) use of aspirin; Z79.899 Other long term (current) drug therapy; Z88.0 Allergy status to penicillin; Z88.1 Allergy status to other antibiotic agents; Z88.5 Allergy status to narcotic agent; Z88.8 Allergy status to other drugs, medicaments and biological substances; Z20.828 Contact with and (suspected) exposure to other viral communicable diseases
CPT/HCPCS: 36415; 71045; 78452; 80048; 80053; 80061; 80306; 81001; 82550; 83690; 83735; 83880; 84443; 84484; 85025; 85379; 87635; 93005; 93017; 93306; 94640; 96374; 96375; 96376; A9500; G0378; J2270; J2405; J2785; J2920; J7620; U0003

== ENCOUNTER 2020-03-10 18:13 | Emergency (ER) | payer SELFPAY ==
--- NOTE | 2020-03-10 19:00 | RAD ---
EXAM: RIGHT HIP TWO VIEWS: 03/10/20 HISTORY: Injury, right hip pain. FINDINGS/IMPRESSION: No fracture, dislocation, or other significant acute osseous process. POS: RRE
== END 2020-03-10 21:12 | disposition left against medical advice (07) ==
LOC: ERS 18:13
DX: Z53.21 Procedure and treatment not carried out due to patient leaving prior to being seen by health care provider (principal)

== ENCOUNTER 2020-05-02 23:56 | Emergency (ER) | payer SELFPAY ==
[2020-05-03 00:44] LABS: #Basophils 0.1 thou/uL (0.0-0.2); #Eosinphils 0.4 thou/uL (0.0-0.7); #Monocytes 0.9 thou/uL (0.11-0.59); #Neutrophils 5.6 thou/uL (1.40-6.50); %Basophils 0.9 % (0.0-1.0); %Eosinophils 4.1 % (0.0-10.0); %Monocytes 8.8 % (0.0-10.0); %Neutrophils 56.2 % (42.0-75.0); Hemoglobin 13.3 g/dL (12.0-16.0); Mean Corpuscular HGB CONC 33.2 g/dL (32.0-36.0); Mean Corpuscular Hemoglobin 32.5 pg (27.0-31.0); Mean Platelet Volume 7.7 fL (7.4-10.4); Platelet Count 255 thou/uL (130-400); RBC Distribution Width 11.9 % (11.5-14.5); Red Blood Cell (RBC) Count 4.09 mill/uL (4.20-5.40)
[2020-05-03] MEDS ORDERED: Aspirin Chewable 81 MG TAB ONE (00:46)
[2020-05-03] MEDS ORDERED: Acetaminophen 500 MG TAB ONE (00:56)
[2020-05-03 01:06] LABS: ALT (SGPT) 41 U/L (8-55); AST (SGOT) 34 U/L (5-34); Albumin 4.1 g/dL (3.5-5.0); Alkaline Phosphatase 148 U/L (40-110); Anion Gap 11 mmol/L (10-20); BUN (Urea Nitrogen) 12 mg/dL (9.8-20.1); Bilirubin, Total 0.4 mg/dL (0.2-1.2); Calc. Creatinine Clearance 0 mL/min (70-130); Calcium 9.1 mg/dL (7.8-10.44); Carbon Dioxide 24 mmol/L (22-29); Chloride 108 mmol/L (98-107); Globulin 3.5 g/dL (2.4-3.5); Glucose 138 mg/dL (70-105); Potassium 3.3 mmol/L (3.5-5.1); Protein, Total 7.6 g/dL (6.0-8.3); Sodium 140 mmol/L (136-145)
== END 2020-05-03 01:42 | disposition home or self-care (01) ==
LOC: ERS 23:56
DX: R07.89 Other chest pain (principal); R60.0 Localized edema; I10 Essential (primary) hypertension; Z87.891 Personal history of nicotine dependence
CPT/HCPCS: 36415; 71045; 80053; 84484; 85025; 93005

== ENCOUNTER 2020-06-23 07:05 | Emergency (ER) | payer SELFPAY ==
[2020-06-23 07:59] LABS: Bacteria/HPF None Seen HPF (None Seen); Bilirubin Negative (Negative); Blood, Urine Trace (Negative); Clarity Clear (Clear); Glucose, Urine (Dipstick) Normal (Negative); Ketone, Urine Negative (Negative); Leukocyte Negative Leu/uL (Negative); Nitrite Negative (Negative); Protein, Urine (Dipstick) Negative (Neg-Trace); RBC/HPF 0-3 HPF (0-3); Specific Gravity, Urine 1.022 (1.002-1.036); Squamous Epithelial 0-3 HPF (0-3); Urobilinogen Normal mg/dL (Less than 2); WBC/HPF 0-3 HPF (0-3); pH, Urine 6.5 (5.0-9.0)
[2020-06-23 08:09] LABS: #Basophils 0.1 thou/uL (0.0-0.2); #Eosinphils 0.2 thou/uL (0.0-0.7); #Lymphocytes 2.5 thou/uL (1.20-3.40); #Monocytes 0.7 thou/uL (0.11-0.59); #Neutrophils 4.5 thou/uL (1.40-6.50); %Basophils 1.3 % (0.0-1.0); %Eosinophils 3.1 % (0.0-10.0); %Lymphocytes 30.4 % (21.0-51.0); %Monocytes 8.7 % (0.0-10.0); %Neutrophils 56.5 % (42.0-75.0); Hemoglobin 13.3 g/dL (12.0-16.0); Mean Corpuscular HGB CONC 33.6 g/dL (32.0-36.0); Mean Corpuscular Hemoglobin 33.2 pg (27.0-31.0); Mean Corpuscular Volume 98.8 fL (78.0-98.0); Mean Platelet Volume 7.5 fL (7.4-10.4); Platelet Count 264 thou/uL (130-400); RBC Distribution Width 11.9 % (11.5-14.5)
[2020-06-23 08:12] LABS: Amphetamine Not Detected (NotDetected); Barbiturates Screen Not Detected (NotDetected); Benzodiazepine Screen Not Detected (NotDetected); Cocaine Metabolite Screen Not Detected (NotDetected); Medtox Control Line Valid? VALID (VALID); Medtox Reader # READER 4; Methadone Not Detected (NotDetected); Methamphetamine Not Detected (NotDetected); Opiate Screen Not Detected (NotDetected); Oxycodone Screen Not Detected (NotDetected); Phencyclidine (PCP) Not Detected (NotDetected); THC/Cannabinoid Screen Not Detected (NotDetected); Tricyclic Screen Not Detected (NotDetected)
[2020-06-23 08:25] LABS: ALT (SGPT) 29 U/L (8-55); AST (SGOT) 24 U/L (5-34); Albumin 4.3 g/dL (3.5-5.0); Alkaline Phosphatase 137 U/L (40-110); Anion Gap 12 mmol/L (10-20); BUN (Urea Nitrogen) 14 mg/dL (9.8-20.1); Bilirubin, Total 0.5 mg/dL (0.2-1.2); Calc. Creatinine Clearance 0 mL/min (70-130); Calcium 9.3 mg/dL (7.8-10.44); Carbon Dioxide 24 mmol/L (22-29); Chloride 107 mmol/L (98-107); Globulin 3.2 g/dL (2.4-3.5); Glucose 99 mg/dL (70-105); Potassium 3.9 mmol/L (3.5-5.1); Protein, Total 7.5 g/dL (6.0-8.3); Sodium 139 mmol/L (136-145)
[2020-06-23 08:29] LABS: Acetaminophen Less than 6.0 mcg/mL (10.0-30.0); Alcohol Less than 10 mg/dL (Less than 10); CK (CPK) 109 U/L (29-168); Salicylate Less than 8.0 mg/dL (15.0-30.0)
== END 2020-06-23 09:34 | disposition home or self-care (01) ==
LOC: ERS 07:05
DX: R41.82 Altered mental status, unspecified (principal); I10 Essential (primary) hypertension; Z87.891 Personal history of nicotine dependence
CPT/HCPCS: 70450; 71045; 80053; 80306; 80307; 81003; 81015; 82550; 83880; 84443; 84484; 85025; 93005